=== PATIENT | male | born 1970 | race African-American/Black ===

== ENCOUNTER 2016-12-28 18:18 | Emergency (ER) | payer OTHER | END 2016-12-28 22:41 | disposition home or self-care (01) | LOC: EDBD 18:18 → ER 18:18 | DX: S06.9X9A Unspecified intracranial injury with loss of consciousness of unspecified duration, initial encounter (principal); M54.2 Cervicalgia; F17.200 Nicotine dependence, unspecified, uncomplicated; W22.8XXA Striking against or struck by other objects, initial encounter | CPT/HCPCS: 70450; 72125; 93005; 99284; A9270-GY ==